=== PATIENT | male | born 1985 | race Caucasian/White ===

== ENCOUNTER 2025-04-27 19:26 | Emergency (ER) | payer OTHER ==
[~2025-04-27] VITALS: Ht 180.3 cm; Wt 80.5 kg
[2025-04-27 19:58] VITALS: BP 144/83; PULSE 104; RESP 16; TEMP 98.4; O2SAT 100
[2025-04-27] MEDS: IBUPROFEN 600 MG TABLET PO ONE (21:01)
[2025-04-27] MEDS: ONDANSETRON 4 MG TABLET PO ONE (21:01)
[2025-04-27] MEDS: PERTUSS(ACELL),DIPH,TET/PF 0.5 ML SYRINGE [ADULT] IM. ONE (21:02)
[2025-04-27] MEDS: BACITRACIN 0.9 GM PACKET OINTMENT TP ONE (21:58)
[2025-04-27] MEDS: CEPHALEXIN MONOHYDRATE 500 MG CAPSULE PO ONE (21:58)
[2025-04-27] MEDS: LIDOCAINE 1% 10 ML VIAL ID ONE (21:59)
== END 2025-04-27 22:51 ==
LOC: EMS 19:26
DX: S01.81XA Laceration without foreign body of other part of head, initial encounter (principal); S05.02XA Injury of conjunctiva and corneal abrasion without foreign body, left eye, initial encounter; S05.12XA Contusion of eyeball and orbital tissues, left eye, initial encounter; F12.90 Cannabis use, unspecified, uncomplicated; F32.A Depression, unspecified; Z98.890 Other specified postprocedural states; Z91.048 Other nonmedicinal substance allergy status; Y04.0XXA Assault by unarmed brawl or fight, initial encounter; Y93.89 Activity, other specified; Y92.89 Other specified places as the place of occurrence of the external cause; Y99.8 Other external cause status
CPT/HCPCS: 99285; 70450; 90715; 90471; 12011; Q0162; J3490